=== PATIENT | female | born 1980 | race American Indian/Alaskan Native ===

== ENCOUNTER 2021-05-11 23:12 | Emergency (ER) | payer OTHER ==
--- NOTE | 2021-05-12 01:06 | Emergency Department Report ---
ED Abdominal Pain HPI - General Chief Complaint: Abdominal Pain Stated Complaint: CRAMPING/CLOSE TO 8 WKS Time Seen by Provider: 05/12/21 00:39 Source: patient Mode of arrival: Ambulatory Limitations: No Limitations - History of Present Illness Initial Comments: 40-year-old -[place] female presents emergency department complaining of a current about 8 weeks ago developing some progressively worsening cramping over the last 2 to 3 days due to follow-up with MAP CLERK no no vomiting 12 in [facility]. She reports no vaginal bleeding but no fever, chills, sweats. No chest pain or palpitations, no hemoptysis no hematemesis no hematochezia Complaint: abdominal pain Location: diffuse Radiation: none Migration to: no migration Severity: mild Quality: cramping, aching, dull Consistency: constant - Related Data Previous Rx's Medication Instructions Recorded Last Taken Type raNITIdine HCl [Zantac] 150 mg PO BID #60 tablet 02/23/15 Unknown Rx Allergies Allergy/AdvReac Type Severity Reaction Status Date / Time hydrocortisone Allergy Rash Unverified 02/23/15 10:08 [From Aquanil HC] Sulfa (Sulfonamide Allergy Rash Unverified 02/23/15 10:08 Antibiotics) dexlansoprazole AdvReac Shortness Verified 02/23/15 11:15 [From Dexilant] of Breath isotretinoin [From Accutane] AdvReac Hives Verified 02/23/15 11:18 ED Review of Systems ROS: Stated complaint: CRAMPING/CLOSE TO 8 WKS Other details as noted in HPI Comment: All other systems reviewed and negative ED Past Medical Hx - Past Medical History Previous Medical History?: Yes Hx Hypertension: Yes (not on meds) Hx GERD: Yes Hx Liver Disease: No Hx Renal Disease: No Hx Seizures: No - Social History Smoking Status: Never Smoker Substance Use Type: None - Medications Home Medications: Home Medications Medication Instructions Recorded Confirmed Last Taken Type raNITIdine HCl [Zantac] 150 mg PO BID #60 tablet 02/23/15 03/23/15 Unknown Rx ED Physical Exam - General Limitations: No Limitations ED Course Vital Signs 05/11/21 23:56 Temperature 98.2 F Pulse Rate 84 Respiratory 15 Rate Blood Pressure 112/65 [Left] O2 Sat by Pulse 100 Oximetry ED Medical Decision Making - Lab Data Result diagrams: 05/12/21 00:35 05/12/21 00:35 - Radiology Data Radiology results: report reviewed [facility] [address] [place] [address] Ultrasound Report Signed Patient: RICHA THIBODEAUX MR#: [id number] : 1980 Acct:[id number] Age/Sex: 40 / F ADM Date: 05/11/21 Loc: ED Attending Dr: Ordering Physician: JAE JOHNSON Date of Service: 05/12/21 Procedure(s): US OB transvaginal Accession Number(s): [id number] cc: JAE JOHNSON ULTRASOUND OBSTETRIC INDICATION / CLINICAL INFORMATION: pelvic pain and . Serum hCG level = 26,829 Clinical Gestational Age (GA) in weeks, days: 7, 6 TECHNIQUE: Transabdominal and Transvaginal. COMPARISON: None available. FINDINGS: GESTATIONAL SAC: No intrauterine gestational sac. YOLK SAC: Not visualized. EMBRYO/FETUS: Not visualized. Uterus: Uterus is enlarged and heterogeneous measuring 10.4 x 5.3 x 6.2 cm. Endometrial stripe is thickened measuring 1.9 cm. No intrauterine identified. ADNEXA: Small 2.2 cm complex cyst of the left ovary. No definite adnexal gestational sac. FREE FLUID: None. ADDITIONAL FINDINGS: None. IMPRESSION: 1. No intrauterine . 2. Small complex cyst of the left ovary without definite positive signs for ectopic . 3. Sonographic findings could represent miscarriage, but very early intrauterine could have this appearance. Very early ectopic cannot be completely excluded on the basis of this examination. Close clinical, laboratory, and sonographic follow-up is recommended. Signer Name: Juan J Mackey MD Signed: 05/12/2021 3:05 AM Workstation Name: [id number] Transcribed By: DT Dictated By: Arsenio Mackey MD Electronically Authenticated By: Arsenio Mackey MD Signed Date/Time: 05/12/21304 DD/ 6 TD/TT: - Medical Decision Making 40-year-old [place] female G5, P3 M1 currently having pelvic cramping scant bleeding and suspicion for a miscarriage. There is possibility for an ectopic though given the presentation is less likely O the radiology does recommend repeat ultrasound and a quant she does an appointment with her MAP CLERK on tomorrow and can get reevaluated and the appropriate testing done at that time she is hemodynamically stable afebrile pain is controlled. Critical care attestation.: If time is entered above; I have spent that time in minutes in the direct care of this critically ill patient, excluding procedure time. ED Disposition Clinical Impression: Threatened miscarriage in early , Pelvic pain affecting in first trimester, antepartum Disposition: HOME / SELF CARE / HOMELESS Is pt being admited?: No Does the pt Need Aspirin: No Condition: Stable Instructions: Threatened Miscarriage, Pelvic Pain, Female, [id number], Abdominal Pain (ED) Additional Instructions: Please keep appointment with your MAP CLERK tomorrow and [facility] and reevaluate your hCG quant and and repeat ultrasound as recommended from the radi ologist on your visit today. Please be advised to return to emergency department should you experience any worsening pain, severe vaginal bleeding, dizziness, chest pain, fever or any other symptoms suggesting that your condition is worsening Referrals: [facility] [Provider Group] - 3-5 Days Forms: Work/School Release Form(ED)
[2021-05-12 01:07] LABS: Basophils % (Auto) 0.3 % (0.0-1.8); Eosinophils # (Auto) 0.1 K/mm3 (0.0-0.4); Eosinophils % (Auto) 0.6 % (0.0-4.3); Hematocrit 36.9 % (30.3-42.9); Lymphocytes # (Auto) 1.4 K/mm3 (1.2-5.4); Lymphocytes % (Auto) 14.5 % (13.4-35.0); Mean Corpuscular HGB Conc 33 % (30-34); Mean Corpuscular Volume 89 fl (79-97); Monocytes # (Auto) 0.7 K/mm3 (0.0-0.8); Monocytes % (Auto) 7.2 % (0.0-7.3); Platelet Count 291 K/mm3 (140-440); Red Blood Count 4.16 M/mm3 (3.65-5.03); Red Cell Distribution Width 14.8 % (13.2-15.2)
[2021-05-12 01:23] LABS: Alanine Aminotransferase 13 units/L (7-56); Albumin 3.5 g/dL (3.9-5); Blood Urea Nitrogen 9 mg/dL (7-17); Calcium 8.8 mg/dL (8.4-10.2); Hemolysis Index 19
[2021-05-12 01:24] LABS: BUN/Creatinine Ratio 13
[2021-05-12 02:20] LABS: Bilirubin,Urine NEG (Negative); Blood,Urine NEG (Negative); Color,Urine Yellow (Yellow); Mucus,Urine FEW /HPF; Protein,Urine <15 mg/dL mg/dL (Negative); Urobilinogen,Urine < 2.0 mg/dL (<2.0)
--- NOTE | 2021-05-12 03:10 | Ultrasound Report ---
ULTRASOUND OBSTETRIC INDICATION / CLINICAL INFORMATION: pelvic pain and . Serum hCG level = 26,829 Clinical Gestational Age (GA) in weeks, days: 7, 6 TECHNIQUE: Transabdominal and Transvaginal. COMPARISON: None available. FINDINGS: GESTATIONAL SAC: No intrauterine gestational sac. YOLK SAC: Not visualized. EMBRYO/FETUS: Not visualized. Uterus: Uterus is enlarged and heterogeneous measuring 10.4 x 5.3 x 6.2 cm. Endometrial stripe is thi ckened measuring 1.9 cm. No intrauterine identified. ADNEXA: Small 2.2 cm complex cyst of the left ovary. No definite adnexal gestational sac. FREE FLUID: None. ADDITIONAL FINDINGS: None. IMPRESSION: 1. No intrauterine . 2. Small complex cyst of the left ovary without definite positive signs for ectopic . 3. Sonographic findings could represent miscarriage, but very early intrauterine could have this appearance. Very early ectopic cannot be completely excluded on the basis of this exa mination. Close clinical, laboratory, and sonographic follow-up is recommended. Signer Name: Juan J Mackey MD Signed: 05/12/2021 3:05 AM Workstation Name: [id number]
[2021-05-12 05:02] VITALS: BP 117/71
== END 2021-05-12 04:07 | disposition home or self-care (01) ==
LOC: ED 23:12
DX: O20.0 Threatened abortion (principal); O26.891 Other specified pregnancy related conditions, first trimester; R10.2 Pelvic and perineal pain; I10 Essential (primary) hypertension; K21.9 Gastro-esophageal reflux disease without esophagitis; Z88.2 Allergy status to sulfonamides; Z88.8 Allergy status to other drugs, medicaments and biological substances; Z3A.01 Less than 8 weeks gestation of pregnancy
CPT/HCPCS: 36415; 76801; 76817; 80053; 81001; 84702; 85025